=== PATIENT | female | born 1995 | race Caucasian/White ===

== ENCOUNTER 2020-10-05 07:31 | Inpatient (IN) ==
[2020-10-05] MEDS ORDERED: LACTATED RINGER'S 1,000 ML IV PRN (07:50)
[2020-10-05] MEDS ORDERED: OXYTOCIN 30 UNITS/500 ML BAG IV PRN ×3 (07:50→19:06)
--- NOTE | 2020-10-05 08:13 | History & Physical Report ---
Date of Service October 05, 2020 Assessment & Plan (1) Postmaturity , 40-42 weeks gestation: (2) Gestational diabetes mellitus (GDM) affecting , antepartum: Plan: Plan pitocin induction, arom when appropriate, epidural on demand. Fetus category one. Monitor bs. Anticipate . Admission and Anticipated Discharge Date Admission Date: October 05, 2020 History of Present Illness Chief Complaint: induction Primary Care Provider: Easton Burdick MD Patient is a 25yowf with iup at 40 1/7 weeks who presents for induction for postdates. Her complicated by diet controlled gdm. Had lsil/+HPV pap in with colpo. +fm. no lof, rare contraction, no vb. Had olvera bulb placed last but fell out prior to leaving the hospital. labs--A-/ab-/ri/rprnr/hepb-/hiv-/gc/ct-/cf/sma-/low risk panorama/passed 16 week gtt/failed 28 week gtt US 08/30--ac 77%, efw 62% Allergies Allergy/AdvReac Type Severity Reaction Status Date / Time cefprozil [From Cefzil] Allergy hives Verified 10/04/20 11:34 Home Medications Medication Instructions Recorded Confirmed Type prenat.vits,margaret,pre-nkbx-gtoby 1 tab PO DAILY 02/22/20 10/04/20 History acetone (urine) test (Ketone Urine #50 ea 08/11/20 10/04/20 Rx Test) blood sugar diagnostic (OneTouch #150 ea 08/11/20 10/04/20 Rx Verio test strips) blood-glucose meter (OneTouch #1 ea 08/11/20 10/04/20 Rx Verio Flex meter) lancets 33 gauge (OneTouch Delica #150 ea 08/11/20 10/04/20 Rx Plus Lancet) Patient History Medical History Gestational diabetes Diet controlled Surgical History History of shoulder surgery Family History Grandfather (Maternal) Pancreatic cancer Grandfather (Paternal) No problems noted. Grandmother (Maternal) Colorectal cancer Grandmother (Paternal) Lung cancer Social History Smoking Status: Former smoker Cigarettes Per Day: 2; Second Hand Exposure: No; Hx Alcohol Use: No Hx Substance Use: No Preferred Language: Kiswahili Communication Ability: Effective Structural Fitter Required: No Beliefs That Will Affect Care: None marital status: Single marital status details: Lukasz (31) [phone] Current Living Situation: Significant Other Current Living Situation Comment: lives with Lukasz and 2 dogs. current occupational status: employed current occupation: Nurse (CONTINUITY COORDINATOR) at [employer] Feels Safe at Home: Yes Assistive Devices: None OB History g1--current [employer] History lsil/+HPV pap this with colpo c/w ce 1 no stds Physical Exam Constitutional: WD/WN, vitals as above Gastrointestinal (Abdomen): soft, gravid, nt Psychiatric: A+Ox3, euthymic affect Genitourinary: cx--4/75/-2/mid /soft toco--occasional efm--135 with mod variability, accels to 160s, no decels Results & Data ([facility]) Vital Signs (Past 12 Hours) Vital Signs Pulse BP 10/05/20 07:57 78 139/86 Code Status & VTE Plan VTE Prophylaxis Plan VTE Prophylaxis will be ordered: No Coding Level of Care Code None Diagnoses Postmaturity , 40-42 weeks gestation O48.0 Gestational diabetes mellitus (GDM) affecting , antepartum O24.419
[2020-10-05 08:32] LABS: Hematocrit (blood only) 37.4 % (37-47); Hemoglobin 12.2 g/dL (12.0-16.0); Mean Corpuscular Hemoglobin 27.9 pg (25-34); Mean Corpuscular Hgb Conc 32.6 g/dL (32-36); Mean Corpuscular Volume 85.6 fL (80-100); Platelet Count 172 K/uL (130-400); RDW Coefficient of Variation 14.1 % (11.5-14.5); RDW Standard Deviation 43.6 fL (36.4-46.3); Red Blood Count 4.37 M/uL (4.2-5.4); White Blood Count 12.78 K/uL (4.8-10.8)
[2020-10-05] MEDS ORDERED: fentaNYL citrate 100 MCG/2 ML VIAL ONE (13:49)
[2020-10-05] MEDS ORDERED: fentaNYL 2MCG/ML ROPIVACAINE 1.25MG/ML 100 ML BAG EPI ONE (13:49)
[2020-10-05] MEDS ORDERED: SODIUM CHLORIDE 0.9% INJ 10 ML VIAL ONE (13:49)
[2020-10-05] MEDS ORDERED: ePHEDrine sulfate 50 MG/ML AMP ONE (13:49)
[2020-10-05] MEDS ORDERED: BUPIVACAINE 0.25% 30 ML VIAL ONE (13:49)
--- NOTE | 2020-10-05 14:33 | Anesthesiology Consultation ---
Date of Service October 05, 2020 Assessment & Plan Chart Review Chart Review: Acceptable Risk for Labor Epidural Consults Requested none History Height/Weight Height: 5 ft 8 in Weight: 117.12 kg Allergies Allergy/AdvReac Type Severity Reaction Status Date / Time cefprozil [From Cefzil] Allergy hives Verified 10/04/20 11:34 Medications Home Medications Medication Instructions Recorded Confirmed Last Taken prenat.vits,margaret,opf-kill-bzgla 1 tab PO DAILY 02/22/20 10/04/20 09/07/20 acetone (urine) test (Ketone Urine #50 ea 08/11/20 10/04/20 Unknown Test) blood sugar diagnostic (OneTouch #150 ea 08/11/20 10/04/20 Unknown Verio test strips) blood-glucose meter (OneTouch #1 ea 08/11/20 10/04/20 Unknown Verio Flex meter) lancets 33 gauge (OneTouch Delica #150 ea 08/11/20 10/04/20 Unknown Plus Lancet) Active Medications Generic Name Dose Route Start Last Admin Trade Name Freq PRN Reason Stop Dose Admin Oxytocin 30 units in 500 mls @ 9 mls/hr 10/05/20 07:51 10/05/20 12:00 Pitocin IV 10/07/20 07:50 0.54 units/hr .Q24H PRN 9 mls/hr Labor Induction/Augmentation Titration Protocol 0.54 UNITS/HR Lactated Ringer's 1,000 mls @ 125 mls/hr 10/05/20 07:50 10/05/20 13:47 Lr IV 10/07/20 07:49 999 mls/hr .Q8H PRN Infusion L&D Protocol Protocol Past Medical History Medical History Gestational diabetes Diet controlled Past Family History Family History Grandfather (Maternal) Pancreatic cancer Grandfather (Paternal) No problems noted. Grandmother (Maternal) Colorectal cancer Grandmother (Paternal) Lung cancer Past Surgical History Surgical History History of shoulder surgery Social History Smoking Status: Former smoker tobacco type: cigarettes Smoking cigarettes per day: 2 Hx Alcohol Use: No Hx Substance Use: No Physical Exam Vital Signs Last Vital Signs Temp 36.7 C 10/05/20 09:38 Pulse 92 H 10/05/20 14:31 Resp 18 10/05/20 09:38 BP 106/55 L 10/05/20 14:31 Pulse Ox 95 10/05/20 14:28 Testing Laboratory Results 10/05/20 08:11 10/05/20 08:54 POC Glucose 93
[2020-10-05] MEDS ORDERED: NALOXONE HCL 0.4 MG/1 ML VIAL/CARP IV PRN (14:35)
[2020-10-05] MEDS ORDERED: diphenhydrAMINE 50 MG/ML VIAL IV PRN (14:35)
[2020-10-05] MEDS ORDERED: ePHEDrine sulfate 50 MG/ML AMP IV PRN (14:35)
[2020-10-05] MEDS ORDERED: NALOXONE HCL 1 MG in SODIUM CHLORIDE 0.9% 1000ML 1,000 ML IV PRN (14:35)
[2020-10-05] MEDS ORDERED: fentaNYL 2MCG/ML ROPIVACAINE 1.25MG/ML 100 ML BAG EPI PRN (14:35)
[2020-10-05] MEDS ORDERED: NALBUPHINE HCL INJ 10 MG/ML AMP IV PRN (14:35)
--- NOTE | 2020-10-05 18:58 | Delivery Summary ---
Vaginal Delivery Summary Date of Service October 05, 2020 Vaginal Delivery Summary and 1st Degree LAC Patient is a 25-year-old 1 P0 white female who presents for induction because of postterm . She had a cervical balloon successively placed the night prior to induction. It fell out prior to leaving the labor and delivery unit. She presented this morning for continuation of the induction. Pitocin augmentation was begun, membranes were ruptured for clear fluid when her contraction pattern was established. She progressed to full dilation and pushed effectively over intact perineum for delivery of a viable female . After the head was delivered there was a mild shoulder dystocia which was resolved with flexion of the hips. After the shoulders were delivered the rest of the infant delivered easily was placed on the mother's abdomen for further attention and drying. After stimulation the infant was vigorous and moving all 4 limbs. After the cord was clamped and cut, the placenta was expressed intact with a three-vessel cord. A first-degree vaginal laceration was repaired with 3-0 chromic in the usual fashion. bleeding was controlled with dilute Pitocin. Estimated blood loss is 200 cc. Mother and doing well after delivery. [facility] [place] Vaginal Delivery Charge Vaginal Delivery Codes: 22316 global code for the antepartum, delivery, and post- Delivery Type Details: and 1st Degree LAC
[2020-10-05] MEDS ORDERED: bisacodyL 10 MG SUPP PR PRN (19:06)
[2020-10-05] MEDS ORDERED: BENZOCAINE 20% AER SPR 82.5 GM CAN EXT PRN (19:06)
[2020-10-05] MEDS ORDERED: ACETAMINOPHEN 325 MG TAB PO PRN (19:06)
[2020-10-05] MEDS ORDERED: oxyCODONE/ACETAMINOPHEN 5mg/325mg TAB PO PRN (19:06)
[2020-10-05] MEDS ORDERED: HYDROCORTISONE ACETATE 25 MG SUPP PR PRN (19:06)
[2020-10-05] MEDS ORDERED: DIPHTHERIA/TETANUS/PERTUSSIS 0.5 ML SYR/VIAL IM ONE (19:06)
[2020-10-05] MEDS ORDERED: SUPERCREAM 0.870% 15 GM JAR EXT PRN (19:06)
--- NOTE | 2020-10-05 19:39 | Anesthesia Procedure Note ---
Date of Service October 05, 2020 Anesthesia Post Epidural Note Vital Signs Vital Signs: Temp Pulse Resp BP Pulse Ox 37.1 C 85 18 128/68 90 10/05/20 19:05 10/05/20 19:22 10/05/20 19:05 10/05/20 19:22 10/05/20 18:28 Notes Mental Status: alert / awake / arousable Nausea / Vomiting: adequately controlled Pain: adequately controlled Airway Patency, RR, SpO2: stable & adequate BP & HR: stable & adequate Hydration State: stable & adequate Neuraxial Anesthesia: was administered and sensory block is resolving Anesthetic Complications: no major complications apparent and Pt Satisfied with anesthetic care Epidural: Removed without complications and With tip intact
[2020-10-05] MEDS: DOCUSATE SODIUM 100 MG CAP PO SCH (21:34)
[2020-10-05] MEDS: IBUPROFEN 600 MG TAB PO PRN (21:34)
[2020-10-06] MEDS: IBUPROFEN 600 MG TAB PO PRN ×2 (04:05→19:42)
--- NOTE | 2020-10-06 06:57 | Obstetrical Progress Note ---
Date of Service <Emma Jimenez MD - Last Filed: 10/06/20 07:38> October 06, 2020 Assessment & Plan <Emma Jimenez MD - Last Filed: 10/06/20 07:38> (1) Encounter for care and examination after delivery: Stable, routine care -Pain control as needed -encourage ambulation, regular diet -GBS-, Rh- (sensitized), RI - -anticipate d/c tomorrow (2) Postmaturity , 40-42 weeks gestation: (3) Headache: (4) Supervision of normal intrauterine in primigravida: <Cherie Giles MD, FACOG - Last Filed: 10/06/20 07:51> (1) Encounter for care and examination after delivery: (2) Postmaturity , 40-42 weeks gestation: (3) Headache: (4) Supervision of normal intrauterine in primigravida: Subjective <Emma Jimenez MD - Last Filed: 10/06/20 07:38> 25 y/o female who is now PPD #1 following spontaneous vaginal delivery at 40 weeks. was complicated by GDM during . Reports feeling well overall this morning. Denies abdominal cramping & 0/10 pain well managed on analgesics. Voiding +. Tolerating meals well and able to ambulate some. + pas sing gas but denies bowel movements. Some persistent lochia with improvement this morning. . Review of Systems Denies fever, chills, sweats Denies shortness of breath, difficulty breathing, chest pain, palpitations, chest pressure. Denies breast pain. Denies dysuria. Denies headache or changes in vision Physical Exam <Emma Jimenez MD - Last Filed: 10/06/20 07:38> General: Alert, oriented. No acute distress. Cardiac: Regular rate and rhythm, no murmurs/rubs/gallops. Respiratory: Clear to auscultation bilaterally a/p, no wheezes/rales/rhonchi. No increased work of breathing. Symmetrical chest rise. No respiratory distress. Abdomen: Soft, nontender, nondistended. Bowel sounds present. Uterus: Uterine fundus firm, palpable 8 cm below umbilicus. Lower Extremities: No lower extremity edema or swelling. No deep calf pain. Luis's negative bilaterally.. Results & Data ([facility]) <Emma Jimenez MD - Last Filed: 10/06/20 07:38> Vital Signs (Past 12 Hours) Vital Signs Temp Pulse Pulse Resp BP BP Pulse Ox 10/06/20 04:00 36.6 C 72 18 120/81 99 10/06/20 00:10 36.7 C 81 18 112/67 98 10/05/20 21:45 36.7 C 78 18 140/70 98 10/05/20 20:39 109 H 122/58 L 10/05/20 20:24 118 H 135/76 10/05/20 20:09 93 H 135/68 10/05/20 19:54 100 H 134/63 10/05/20 19:39 92 H 140/63 10/05/20 19:22 85 128/68 10/05/20 19:20 99 H 128/64 10/05/20 19:08 102 H 126/58 L 10/05/20 19:05 37.1 C 18 10/05/20 18:53 100 H 134/58 L <Cherie Giles MD, FACOG - Last Filed: 10/06/20 07:51> Co-Signing Physician Notes Resident Physician Supervision Note: I interviewed and examined the patient. Discussed with Dr. Jimenez and agree with findings and plan as documented in the note. Any exceptions or clarifications are listed here: [None] Documented By: Cherie Giles MD, FACOG Resident Activity Tracking <Emma Jimenez MD - Last Filed: 10/06/20 07:38> Resident Involvement: Resident Care Provided Care Provided: OB Delivery
[2020-10-06 07:00] LABS: Hematocrit (blood only) 37.3 % (37-47); Hemoglobin 12.2 g/dL (12.0-16.0); Mean Corpuscular Hemoglobin 28.5 pg (25-34); Mean Corpuscular Hgb Conc 32.7 g/dL (32-36); Mean Corpuscular Volume 87.1 fL (80-100); Mean Platelet Volume 10.6 fL (7.4-10.4); Platelet Count 177 K/uL (130-400); RDW Coefficient of Variation 14.3 % (11.5-14.5); Red Blood Count 4.28 M/uL (4.2-5.4); White Blood Count 12.96 K/uL (4.8-10.8)
[2020-10-06] MEDS: PRENATAL VITAMIN 1 TAB PO SCH (08:29)
[2020-10-06] MEDS: DOCUSATE SODIUM 100 MG CAP PO SCH ×2 (08:29→19:42)
[2020-10-06] MEDS ORDERED: bisacodyL 5 MG TABEC PO SCH (20:00)
--- NOTE | 2020-10-07 06:23 | Obstetrical Progress Note ---
Date of Service <Emma Jimenez MD - Last Filed: 10/07/20 08:19> October 07, 2020 Assessment & Plan <Emma Jimenez MD - Last Filed: 10/07/20 08:19> (1) Encounter for care and examination after delivery: Stable, routine care -GBS-, Rh- (sensitized), RI - -ready for d/c -6 wk outpatient f/u (2) Postmaturity , 40-42 weeks gestation: (3) Headache: (4) Supervision of normal intrauterine in primigravida: <Rubina Ovalles MD - Last Filed: 10/07/20 08:14> (1) Encounter for care and examination after delivery: (2) Postmaturity , 40-42 weeks gestation: (3) Headache: (4) Supervision of normal intrauterine in primigravida: Subjective <Emma Jimenez MD - Last Filed: 10/07/20 08:19> 25 y/o female who is now PPD #2 following spontaneous vaginal delivery at 40 weeks. Reports feeling well overall this morning. 0/10 pain well managed on analgesics. Voiding +. Tolerating meals well and able to ambulate. + passing gas but denies bowel movements. Some lochia with some improvement this morning. . Review of Systems Denies fever, chills, sweats Denies shortness of breath, difficulty breathing, chest pain, palpitations, chest pressure. Denies breast pain. Denies dysuria. Denies headache or changes in vision Review of Systems All systems reviewed & are unremarkable except as noted in HPI & below Physical Exam <Emma Jimenez MD - Last Filed: 10/07/20 08:19> General: Alert, oriented. No acute distress. Cardiac: Regular rate and rhythm, no murmurs/rubs/gallops. Respiratory: Clear to auscultation bilaterally a/p, no wheezes/rales/rhonchi. No increased work of breathing. Symmetrical chest rise. No respiratory distress. Abdomen: Soft, nontender, nondistended. Bowel sounds present. Uterus: Uterine fundus firm, palpable 3 cm below umbilicus. Lower Extremities: No lower extremity edema or swelling. No deep calf pain. Luis's negative bilaterally.. Results & Data ([facility]) <Emma Jimenez MD - Last Filed: 10/07/20 08:19> Vital Signs (Past 12 Hours) Vital Signs Temp Pulse Resp BP 10/06/20 23:35 37 C 74 18 124/75 10/06/20 19:55 36.7 C 85 18 125/80 <Rubina Ovalles MD - Last Filed: 10/07/20 08:14> Co-Signing Physician Notes Resident Physician Supervision Note: I interviewed and examined the patient. Discussed with Dr. Jimenez and agree with findings and plan as documented in the note. Any exceptions or clarifications are listed here: [ ] Documented By: Rubina Ovallse MD, FACOG <Rubina Ovalles MD - Last Filed: 10/07/20 08:14> Resident Involvement: Resident Care Provided Care Provided: Adult Hospital Medicine
[2020-10-07 06:53] LABS: Hematocrit (blood only) 33.2 % (37-47); Hemoglobin 10.7 g/dL (12.0-16.0)
[2020-10-07] MEDS: IBUPROFEN 600 MG TAB PO PRN (09:05)
[2020-10-07] MEDS: DOCUSATE SODIUM 100 MG CAP PO SCH (09:05)
[2020-10-07] MEDS: PRENATAL VITAMIN 1 TAB PO SCH (09:05)
== END 2020-10-07 11:50 | disposition home or self-care (01) | DRG 807 ==
LOC: 4S1 07:31 → 4S2 21:23